=== PATIENT | male | born 1975 | race Two or more races ===

== ENCOUNTER 2021-01-14 10:46 | Emergency (ER) | payer OTHER ==
[~2021-01-14] VITALS: Ht 167.6 cm; Wt 90.3 kg
== END 2021-01-14 18:03 | disposition home or self-care (01) ==
LOC: ER 10:46
DX: U07.1 COVID-19 (principal); J12.82 Pneumonia due to coronavirus disease 2019; K76.0 Fatty (change of) liver, not elsewhere classified

== ENCOUNTER 2021-01-16 11:51 | Inpatient (IN) | payer OTHER ==
[~2021-01-16] VITALS: Ht 170.2 cm; Wt 79.4 kg
== END 2021-01-20 20:44 | disposition left against medical advice (07) | DRG 177 ==
LOC: ER 11:51 → MEDJ 17:05
PROVIDERS: ADMIT Internal Medicine; ATTEND Internal Medicine
PROC: 8E0ZXY6 Isolation (ICD-10-PCS; principal; 2021-01-16)
PROC: 3E0F7SF Introduction of Other Gas into Respiratory Tract, Via Natural or Artificial Opening (ICD-10-PCS; 2021-01-16)
PROC: 4A12X4Z Monitoring of Cardiac Electrical Activity, External Approach (ICD-10-PCS; 2021-01-16)
PROC: XW033E5 Introduction of Remdesivir Anti-infective into Peripheral Vein, Percutaneous Approach, New Technology Group 5 (ICD-10-PCS; 2021-01-17)
DX: U07.1 COVID-19 (principal); J12.82 Pneumonia due to coronavirus disease 2019; R09.02 Hypoxemia; E55.9 Vitamin D deficiency, unspecified

== ENCOUNTER 2025-02-13 11:30 | Emergency (ER) | payer OTHER ==
[~2025-02-13] VITALS: Ht 167.6 cm; Wt 80.7 kg
[2025-02-13] MEDS ORDERED: CEFTRIAXONE SODIUM 1,000 MG VIAL IV ONE (15:00)
[2025-02-13] MEDS ORDERED: CEFTRIAXONE SODIUM 1,000 MG VIAL ONE (15:31)
[2025-02-13 16:12] LABS: BASO % 0.9 % (0.1-1.2); EOS # 0.29 (0.04-0.54); EOS % 4.2 % (0.7-7.0); LYMPH # 2.27 (1.18-3.74); LYMPH % 32.9 % (19.3-53.1); MEAN PLATELET VOLUME 10.90 fl (9.4-12.4); MONO # 0.53 (0.24-0.82); MONO % 7.7 % (4.7-12.5); NEUT # 3.74 (1.56-6.13); NEUT % 54.0 % (34.0-71.1); RED CELL DISTRIBUTION WIDTH 12.7 % (11.6-14.4)
[2025-02-13 16:17] LABS: URINE APPEARANCE Clear; URINE BILIRRUBIN Negative (NEGATIVE); URINE BLOOD Moderate; URINE COLOR Yellow; URINE GLUCOSE Negative (NEGATIVE); URINE LEUKOCYTE Negative; URINE NITRATE Negative; URINE PROTEIN 30 (NEGATIVE); URINE UROBILINOGEN 1.0 E.U./dl
[2025-02-13 16:18] LABS: URINE BACTERIA 5.9 uL (0.0-1933); URINE EPITHELIAL CELLS 3.5 uL (0.0-38.8); URINE RBC 111.0 uL (0.0-20.8); URINE WBC 10.0 uL (0.0-23.2)
[2025-02-13 16:21] LABS: URINE CAST 0.58 uL (0.0-1.40); URINE KETONE 40 (NEGATIVE)
[2025-02-13 16:43] LABS: ALT/SGPT 30.0 U/L (12-78); AST/SGOT 17.0 U/L (15-37); BILIRUBIN TOTAL 0.82 mg/dL (0.3-1.2); BUN CREA RATIO 13.0 (7.0-25.0); CREATININE SERUM 1.08 mg/dL (0.70-1.30); GFR 72.67; GLOBULINA 4.0 G/DL (2.4-3.5); GLUCOSE FASTING 94.0 mg/dL (65-100); OSMOLALITY SERUM 283.0 MOSM/KG (275-295)
== END 2025-02-13 17:38 | disposition home or self-care (01) ==
LOC: ER 11:31
PROVIDERS: General Practice
DX: R30.0 Dysuria (principal); R10.A1 Flank pain, right side; Z87.442 Personal history of urinary calculi